=== PATIENT | female | born 1960 | race Caucasian/White ===

== ENCOUNTER 2023-08-18 08:29 | Inpatient (IN) | payer OTHER, SELFPAY ==
[2023-08-18] VITALS (9 sets, daily range): BP systolic 91–142; BP diastolic 47–76; BMI 30.7; BMI 29.4
[2023-08-18 05:14] LABS: % Basophils 0.2 % (0-2); % Immature Granulocytes 0.4 % (0-0.5); % Lymphocytes 6.2 % (20.5-51.1); % Monocytes 9.3 % (1.7-9.3); % Neutrophils 83.9 % (42.2-75.2); Absolute Immature Granulocytes 0.1 10^3/uL (0-0.05); Absolute Lymphocytes 0.8 10^3/uL (1.2-3.4); Absolute Monocytes 1.2 10^3/uL (0.1-0.6); Absolute Neutrophils 11.1 10^3/uL (1.4-6.5); Hematocrit 36.7 % (37.0-47.0); Hemoglobin 12.8 g/dL (12.0-16.0); Mean Corp Hgb Conc. 34.9 g/dL (33.0-37.0); Mean Corpuscular Hgb 30.6 pg (27.0-31.0); Mean Corpuscular Volume 87.8 fL (81.0-99.0); Nucleated Red Blood Cells % 0 %; Platelet Count 303 10^3/uL (130-400); Red Blood Cell Count 4.18 10^6/uL (4.20-5.40); Red Cell Dist. Width 12.9 % (11.5-14.5); White Blood Cell Count 13.2 10^3/uL (4.8-10.8)
--- NOTE | 2023-08-18 05:20 | ED.GENMED ---
History of Present Illness
General
Chief Complaint: Rectal Bleeding
Source: patient and spouse
Exam Limitations: none
Time Seen by Provider: 08/18/23 05:09
Nursing documentation reviewed up to this point in time: agreed with
Travel History
Have you had any contact with someone who has COVID-19?: No
Do you have any symptoms of coronavirus? Fever > 100 degrees, chills, cough, shortness of breath, sore throat, loss of taste or smell, muscle aches, or headache?: No
History of Present Illness
History of Present Illness:
This is a 63-year-old woman who has history of hypertension, maintained on low-dose hydrochlorothiazide. She presents with somewhat abrupt onset of nausea, vomiting, diarrhea that initially began around 6:30 PM yesterday evening. She continued
with frequent vomiting and nonbloody diarrhea throughout the evening until approximately 10 PM when vomiting resolved but diarrhea has persisted and is now bloody. Throughout the night and morning patient states she has had intermittent crampy mid
to lower abdominal pain accompanied with passage of bright red liquid stool generally once per hour. She states she has been passing approximately half a cup full of bright red liquid bloody stool generally once per hour. She has had intermittent
chills but has not had a fever.
She does admit to mild to moderate lightheadedness with initial onset of symptoms yesterday evening but lightheadedness has since resolved.
She denies chest pain or palpitations, no cough or shortness of breath.
She takes no anticoagulants.
Her had similar nausea/vomiting/diarrhea without bloody diarrhea that began August 14 and resolved August 16.
She denies recent antibiotic use nor recent travel.
She reports no history of similar episodes in the past. No prior history of GI bleed.
She states she has undergone routine surveillance colonoscopy that she believes was unremarkable.
Past History
Past History
ED Past Medical History: HTN ([place]) and Other (Endometriosis, anemia related to dysfunctional uterine bleeding 2011); Negative Arrthythmia, Asthma, CAD, Cancer, CHF or COPD
ED Past Surgical History: and Gynecological (Laparoscopy for endometriosis)
Social History
Tobacco: Non-smoker
Alcohol: None
Drug: None
Personal:
Living: with family
Employment: Employed
Family History
Family History: Hypertension
Phy Exam
Physical Exam
Physical Exam:
GENERAL: 63-year-old woman appears her stated age, awake and alert, mildly ill in appearance. Afebrile. Vital signs within normal limits. is accompanying.
EYE: anicteric
NECK: Supple, nontender, no meningismus, no significant adenopathy.
ENT: oral mucosa is moist. No rhinorrhea.
CARDIAC: Regular rate and rhythm. no murmur.
LUNGS: Clear breath sounds bilaterally, no acute respiratory distress, no wheezes/rales/rhonchi
ABDOMEN: Soft, nondistended, mild generalized tenderness to the lower abdomen, no r/g, no cvat. Mildly hyperactive bowel sounds. Rectal exam reveals scant bright red blood per rectum, heme positive. No palpable masses.
NEUROLOGICAL: Alert and oriented x3, no focal neuro deficits.
SKIN: Warm and dry, normal color, skin intact. No rash.
MUSCULOSKELETAL: No C/C/E. peripheral pulses are full and equal b/l. No palpable tenderness.
PSYCH: Normal and appropriate interaction.
Course
Orders/Labs/Results
Orders:
Orders
08/18/23 04:57
Cardiac Monitoring- Treatment ONCE
IV Insert/Care/Rem.- Treatment PRN
O2 Therapy [RESP] Urgent
Titrate/Wean O2 to maintain O2 sat greater than (%): 93
Special Instructions: MAINTAIN CONTINOUS O2 SATS > OR = 93%
Pulse Ox/spot Check [RESP] Urgent
Quantity: 1
Special Instructions: ON ROOM AIR
08/18/23 05:05
Type+Screen Urgent
Complete Blood Count/With Diff Urgent
Comprehensive Metabolic Panel Urgent
PTT Urgent
Prothrombin Time Urgent
08/18/23 05:18
0.9% Sodium Chloride 1000 ml [Nss] 1,000 ml IV BOLUS
08/18/23 05:31
CT Abd/pelvis W Iv Cont Urgent
Comment:
Reason For Exam: acute N/V/D, bloody diarrhea
08/18/23 05:54
Lactic Acid Urgent
STOOL [C difficile Antigen & Toxins] Urgent
QUENTIN Source: Feces/Stool
Specimen Description:
Date Specimen was Collected: 08/18/23
Time Specimen was Collected: 05:51
Stool Culture Urgent
QUENTIN Source: Feces/Stool
Specimen Description:
Date Specimen was Collected: 08/18/23
Time Specimen was Collected: 05:51
08/18/23 07:05
Piperacillin/Tazo 3.375 Gram [Zosyn] 3.375 gram in 50 ml IV NOW
Abnormal Lab Results
08/18/23
05:05
WBC 13.2 H 10^3/uL
(4.8-10.8)
RBC 4.18 L 10^6/uL
(4.20-5.40)
Hct 36.7 L %
(37.0-47.0)
Abs Immat Gran (auto) 0.1 H 10^3/uL
(0-0.05)
Absolute Neuts (auto) 11.1 H 10^3/uL
(1.4-6.5)
Absolute Lymphs (auto) 0.8 L 10^3/uL
(1.2-3.4)
Absolute Monos (auto) 1.2 H 10^3/uL
(0.1-0.6)
Neutrophils % 83.9 H %
(42.2-75.2)
Lymphocytes % 6.2 L %
(20.5-51.1)
Sodium 130 L mmol/L
(135-145)
Glucose 137 H mg/dl
(70-99)
08/18/23 05:05
08/18/23 05:05
Vital Signs
Initial and Last Documented VS:
Initial Vital Signs
Temp Pulse Resp BP Pulse Ox
97.8 F 80 18 142/66 100
08/18/23 04:44 08/18/23 04:44 08/18/23 04:44 08/18/23 04:44 08/18/23 04:44
Last Documented Vital Signs
Temp Pulse Resp BP Pulse Ox
97.8 F 80 18 142/66 100
08/18/23 04:44 08/18/23 04:44 08/18/23 04:44 08/18/23 04:44 08/18/23 04:44
MDM/Problems Addressed
Differential Diagnosis Includes:
Concern for acute gastroenteritis, enterotoxigenic colitis, other consideration is acute lower GI bleed related to internal hemorrhoid, diverticular bleed, AVM.
Ischemic bowel is much less likely.
Thus far hemodynamically stable.
Will initiate IV fluids.
Labs are pending.
Will plan for stool cultures, stool for C. difficile.
Will plan for CT abdomen pelvis with IV contrast.
Chronic conditions affecting care: HTN
*Radiology
Radiology exam reviewed: preliminary read by ED provider (Preliminary CT read by myself shows significant bowel wall thickening of the descending as well as sigmoid colon. No evidence of free air. No bowel obstruction.) and radiology read reviewed
(CAT scan shows severe acute infectious colitis of the descending and sigmoid colon)
*Pulse Oximetry
Patient hypoxic: no
*Ip Network Architect Interpretation
Rate: normal
Interpretation: normal
Rhythm: sinus
*Critical Care Note
Total Time (30-74mins, 75-104mins- exclusive of procedures): Not Applicable
Update Note
Update Note:
Patient continues with bright red bloody liquid stool, generally every 45 minutes to an hour.
She remains hemodynamically stable.
Labs show mildly elevated white blood cell count of 13.2. Normal H&H. Mild hyponatremia with sodium of 130, otherwise electrolytes within normal limits. Lactic acid is normal at 1.2.
Awaiting official CAT scan result but appears to have moderate bowel wall colonic wall thickening of descending and sigmoid colon.
Concern for acute hemorrhagic colitis in the is some concern that she continues with passage of bright red bloody stool at least every hour.
Will continue IV fluids, n.p.o. status and will initiate IV antibiotics.
Stool cultures are pending.
Will admit to hospitalist service.
ED Attending Note
-
Portions of this chart may have been created with voice recognition software.� Occasional wrong word or��sound alike� substitutions may have occurred due to the inherent limitations of voice recognition software.
Discharge Plan
Departure
Patient Disposition: Admit
Date of Disposition: 08/18/23
Time of Disposition: 07:09
Presentation/result/management discussed w/ accepting MD/DO: Hospitalist
Condition: Fair
Discharge Problem:
Acute hemorrhagic colitis
Prescriptions:
No Action
hydrochlorothiazide 12.5 mg Tablet
12.5 mg PO DAILY
Referrals:
Tamia Martinez DO [Family Provider] -
Interventions
Interventions:
*Risk Screen - Suicide Last Done: 08/18/23 04:44
*General Assessment Last Done: 08/18/23 05:04
*Neglect/Abuse Screening Last Done: 08/18/23 04:44
ED- Fall Risk Assessment Last Done: 08/18/23 05:21
*ED COVID-19 Vaccine History Last Done: 08/18/23 05:21
JK-Dpiuod-Pxunpczyog Assessment Last Done: 08/18/23 05:21
ED- Cardiac Assessment Last Done: 08/18/23 05:21
ED- Pulmonary Assessment Last Done: 08/18/23 05:21
[2023-08-18 05:38] LABS: ALT (SGPT) 21 U/L (0-35); AST (SGOT) 25 U/L (14-36); Albumin 4.3 g/dl (3.5-5.0); Alkaline Phosphatase 78 U/L (38-126); Blood Urea Nitrogen 16 mg/dl (7-17); Calcium 9.4 mg/dl (8.4-10.2); Carbon Dioxide 24 mmol/L (22-30); Chloride 101 mmol/L (98-107); Estimated Creatinine Clearance 85 ml/min; Glucose 137 mg/dl (70-99); Potassium 4.2 mmol/L (3.5-5.1); Sodium 130 mmol/L (135-145); Total Bilirubin 0.6 mg/dl (0.2-1.3); Total Protein 6.9 g/dl (6.3-8.2); eGFR > 60.00
[2023-08-18 05:48] LABS: INR 0.93; PT 12.3 Sec (11.4-14.6)
[2023-08-18] MEDS: NSS 1000 IV (05:51)
[2023-08-18 06:22] LABS: Lactic Acid 1.2 mmol/L (0.7-2.0)
[2023-08-18] MEDS: ZOSYN 50 IV ×3 (07:14→20:08)
--- NOTE | 2023-08-18 07:50 | W.PN.HOSP.TC ---
Today's Communication/Plan
-
stool studies
IVF
Assessment / Plan
Assessment / Plan
Acute onset of vomiting with associated diarrhea ~6:30 last evening
No foreign travel or antibiotics. also with diarrhea/vomiting 2/-2/3. Also no abx or foreign travel.
Pt had nl colonoscopy ~7 yrs ago for screening. No GI hx
CT scan abd: 1. � SEVERE ACUTE INFECTIOUS COLITIS of the DESCENDING and SIGMOID COLON.
2. � Minimal peritoneal fluid in the pelvis.
3. � Mild diffuse hepatic steatosis.
essential HTN
Hyponatremia/mild hyperglycemia
P:IVF
empiric abx
stool studies
GI consult
full code
see dictated note
Anticipated Discharge: > 48 hours
Subjective/Interval History
-
Date of Service: August 18, 2023
Vomiting and diarrhea onset 6:30 PM last evening, vomiting resolved, diarrhea became hemorrhagic
Objective Data
-
Labs:
Laboratory Results
08/18/23
05:05
WBC 13.2 H
Hgb 12.8
Hct 36.7 L
Plt Count 303
PT 12.3
INR 0.93
APTT 26.0
Sodium 130 L
Potassium 4.2
Chloride 101
Carbon Dioxide 24
BUN 16
Creatinine 0.7
Glucose 137 H
Calcium 9.4
Total Bilirubin 0.6
AST 25
ALT 21
Alkaline Phosphatase 78
Vital Signs:
Vital Signs
Temp Pulse Resp BP Pulse Ox
97.8 F 72 17 139/74 99
08/18/23 04:44 08/18/23 07:45 08/18/23 07:45 08/18/23 07:00 08/18/23 07:45
Review of Systems
-
History Source: Patient and Family ( at bedside)
Constitutional: Denies Fever
EENT: Reports No Symptoms Reported
Respiratory: Reports No Symptoms
Cardiac: Reports No Symptoms
Abdomen/GI: Reports Abdominal Pain, Vomiting, Diarrhea and Bloody Stools
Genitourinary: Reports No Symptoms
Musculoskeletal: Reports No Symptoms
Neuro: Reports Dizzy
Physical Exam
-
General: Well Developed, Well Nourished and No Apparent Distress
HEENT: Normocephalic, Atraumatic and Moist Mucous Membranes
Respiratory: Clear to Auscultation; Negative Wheezes, Rales or Rhonchi
Cardiac: Regular Rhythm and S1/S2
GI: Soft, Normal Bowel Sounds and Tender
Neuro: Awake, Alert and Oriented
--- NOTE | 2023-08-18 10:23 | CON.GI ---
Addendum entered and electronically signed by Ange Escudero MD 08/18/23 12:34:
I saw and examined the patient.
The STOCK FEEDER's note was reviewed and I agree with the note.
Comment: This is a 63-year-old female who presented to the emergency room with symptoms off nausea, vomiting and diarrhea with bloody stools started yesterday evening.. CT shows severe colitis of the descending and sigmoid colon and was started on
Zosyn in the ER. Her was recently sick with similar symptoms his symptoms lasted for 3 days but his diarrhea was nonbloody. She says that she had eaten out prior to the onset of the symptoms she had eaten sausage.
Assessment and plan acute onset of symptoms of nausea, vomiting, abdominal pain with bloody diarrhea and CT consistent with left-sided colitis most consistent with infectious colitis likely foodborne. She is currently on antibiotics with Zosyn she
is nontoxic-appearing she did have mildly elevated leukocytosis on admission hemoglobin is stable. Continue IV fluids and antibiotics for now pending stool cultures. Will need repeat colonoscopy in about 6 to 8 weeks after DC. Doubt ischemic
colitis or IBD. Her last colonoscopy was about 7 years ago
Original Note:
Consultation
-
Date/Time Consultation Requested: 08/18/23
Date/Time Consultation Performed: 08/18/23 @ 10:30
Requesting Provider: Dr. Peguero
Performing Provider: CHRIS Cabezas; Dr. Escudero
Reason for Consultation: infectious colitis
Medical History
Chief Complaint / HPI
Chief Complaint: diarrhea, vomiting
History of Present Illness:
The patient is a 63-year-old female with a past medical history significant for hypertension, endometriosis, who presented to the emergency room complaints of rectal bleeding and vomiting. We are being asked to evaluate for possible infectious
colitis. The patient reports acute onset of nausea, vomiting, and diarrhea yesterday evening around 6:30 PM. She notes that her had been sick with similar symptoms several days prior and they had been going out to eat often this past week.
She reports that the nausea and vomiting had subsided but around 10 PM she started having bright red blood per rectum. She reports intermittent crampy abdominal discomfort of the lower abdomen prior to onset of the blood. She notes about a cup
size of blood with each episode. She denies any fevers but does admit to chills. She denies any further nausea or vomiting. She denies any significant constipation or diarrhea prior to the onset. She does note that when she was coming home from
the restaurant 1 evening she had urgency to go to the bathroom and did feel dizzy and lightheaded and near syncopal. She otherwise denies any chest pain, shortness of breath, syncope, dysphagia, odynophagia, unintentional weight loss, or loss of
appetite. She does admit she did take Advil once this week but denies any regular use of NSAIDs. She denies any use of blood thinners. She does drink alcohol 3 times weekly about 2-3 drinks per sitting. She reports her last colonoscopy was done
about 7 years ago at [facility] which was normal. She denies any recent travel. She admits to a family history of colon cancer of her maternal aunt. No family history of IBD. She notes that she is getting a workup with a private chef as her heart
rate transiently is elevated for unclear reasons. In the ER, a CT of the abdomen and pelvis was done showing findings consistent with severe acute colitis of the descending and sigmoid colon. Stool studies were sent, with negative Cdiff and pending
stool culture. She was placed on IV zosyn, CLD, and admitted for further evaluation by GI.
Past Medical History
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
Past Surgical History: and Gynecological (Laparoscopy for endometriosis)
Social History
Tobacco: Non-Smoker
Alcohol: None
Drug: None
Personal:
Living: With Family
Family History
Family History: Reviewed & Not Pertinent and Other (maternal aunt-colon cancer)
Allergies / Home Medications
Allergy/AdvReac Type Severity Reaction Status Date / Time
No Known Allergies Allergy Verified 08/18/23 04:47
Medication Instructions Recorded
ibuprofen 200 mg tablet (Advil) 200 mg PO DAILYPRN PRN mild pain 08/18/23
lisinopril 20 1 tab PO QPM 08/18/23
mg-hydrochlorothiazide 12.5 mg
tablet
loperamide 2 mg capsule 2 mg PO DIRECTED PRN diarrhea 08/18/23
Review of Systems
-
History Source: Patient
Constitutional: Reports Chills
EENT: Reports No Symptoms
Respiratory: Reports No Symptoms
Cardiac: Reports No Symptoms
Abdomen/GI: Reports Abdominal Pain, Nausea, Vomiting, Diarrhea and Bloody Stools
: Reports No Symptoms
Musculoskeletal: Reports No Symptoms
Skin: Reports No Symptoms
Neurological: Reports Dizzy
Vital Signs
Temp Pulse Resp BP Pulse Ox
97.8 F 72 17 139/74 99
08/18/23 04:44 08/18/23 07:45 08/18/23 07:45 08/18/23 07:00 08/18/23 07:45
Physical Exam
Exam
General: Well Developed, Well Nourished, No Apparent Distress and Other (flushed)
HEENT: Normocephalic, Anicteric and Atraumatic
Respiratory: Clear
Cardiac: S1/S2 and Regular Rhythm
GI: Soft, Non Distended, Normal Bowel Sounds (hyperactive) and Tender (RLQ/LLQ)
Musculoskeletal: No Edema
Skin: Warm and Dry
Neuro: Awake, Alert and Oriented
Psych: Calm
Results
WBC 13.2 10^3/uL (4.8-10.8) H 08/18/23 05:05
Hgb 12.8 g/dL (12.0-16.0) 08/18/23 05:05
Hct 36.7 % (37.0-47.0) L 08/18/23 05:05
MCV 87.8 fL (81.0-99.0) 08/18/23 05:05
Plt Count 303 10^3/uL (130-400) 08/18/23 05:05
Absolute Neuts (auto) 11.1 10^3/uL (1.4-6.5) H 08/18/23 05:05
PT 12.3 Sec (11.4-14.6) 08/18/23 05:05
INR 0.93 08/18/23 05:05
APTT 26.0 Sec (23.4-35.0) 08/18/23 05:05
Sodium 130 mmol/L (135-145) L 08/18/23 05:05
Potassium 4.2 mmol/L (3.5-5.1) 08/18/23 05:05
Chloride 101 mmol/L (98-107) 08/18/23 05:05
Carbon Dioxide 24 mmol/L (22-30) 08/18/23 05:05
BUN 16 mg/dl (7-17) 08/18/23 05:05
Creatinine 0.7 mg/dL (0.6-1.0) 08/18/23 05:05
Calcium 9.4 mg/dl (8.4-10.2) 08/18/23 05:05
Total Bilirubin 0.6 mg/dl (0.2-1.3) 08/18/23 05:05
AST 25 U/L (14-36) 08/18/23 05:05
ALT 21 U/L (0-35) 08/18/23 05:05
Alkaline Phosphatase 78 U/L (38-126) 08/18/23 05:05
Diagnostic Image Results:
08/18/2023 CT A/P w/IV contrast: �'SEVERE ACUTE INFECTIOUS COLITIS of the DESCENDING and SIGMOID COLON. Minimal peritoneal fluid in the pelvis. Mild diffuse hepatic steatosis.'
Prior GI Procedures:
EGD: none on file
Colonoscopy: ~7 years ago, normal per pt (At [facility])
Assessment / Plan
-
The patient is a 63-year-old female with a past medical history significant for hypertension, endometriosis, who presented to the emergency room complaints of rectal bleeding and vomiting. We are being asked to evaluate for possible infectious
colitis. She admits to acute onset of nausea, vomiting, diarrhea, with subsequent rectal bleeding. Her had been sick several days prior with similar symptoms. CT imaging showing severe likely acute infectious colitis of the descending and
sigmoid colon. Also noted with a mild leukocytosis with WBC 13.2. Hemoglobin stable on admission. Lactic acid was normal. Prior colonoscopy about 7 years ago was normal.
Problem list:
-nausea, vomiting, diarrhea, BRBPR
-CT showing severe descending, sigmoid colitis
-leukocytosis
-hyponatremia
-hx HTN
-hx endometriosis
Recommendations:
-Etiology of presenting symptoms/colitis likely infectious in nature (with sick at home days prior) v inflammatory colitis v less likely ischemic v gastroenteritis v other.
-Send stool studies. Added giardia/crypto, stool WBC, norovirus. Cdiff negative. Stool culture pending.
-Antibiotics as per hospitalist
-Clear liquid diet, advance to full liquids if tolerating. Goal diet low residue/low lactose
-Monitor for ongoing bleeding/stools. If continues with significant bleeding consider bleeding scan v inpatient colonoscopy
-Trend H/H
-Eventual colonoscopy outpatient in 6-8 weeks
-Avoid NSAID's
-Will follow
-
-
Thank you for consultation and allowing me to participate in the patient's care. Please call the microsoft bi consultant GI physician during the after hours with any questions or concerns.
[2023-08-18] MEDS: D5/0.45%NSS with KCL 20 MEQ 1000 IV ×2 (12:30→20:13)
[2023-08-18] MEDS: DIOVAN 80 MG PO (12:30)
[2023-08-18] MEDS: FLUSH (NSS) 1 FLUSH IV (12:32)
[2023-08-18 12:56] LABS: Hematocrit 33.7 % (37.0-47.0); Hemoglobin 11.7 g/dL (12.0-16.0)
--- NOTE | 2023-08-18 13:26 | EDRN ---
Patient taken to room 335-1 on stretcher by monitor technician.
[2023-08-18] MEDS: TYLENOL 650 MG PO ×2 (15:56→23:35)
[2023-08-18 17:38] LABS: Urine Albumin Negative (Neg - Trace); Urine Bilirubin Negative (Negative); Urine Character Clear (Clear); Urine Color Straw; Urine Glucose Negative (Negative); Urine Ketone Negative (Negative); Urine Leukocyte Trace (Negative); Urine Nitrite Negative (Negative); Urine Occult Blood Negative (Negative); Urine Urobilinogen Negative (Neg - 1+)
[2023-08-18 17:47] LABS: Urine Bacteria Few (Negative); Urine Red Blood Cell 0-2 /HPF (0-2); Urine White Cell 0-2 /HPF (0-5)
[2023-08-19] MEDS: ZOSYN 50 IV ×4 (02:16→19:38)
[2023-08-19 05:30] LABS: Hematocrit 30.7 % (37.0-47.0); Hemoglobin 10.5 g/dL (12.0-16.0); Mean Corp Hgb Conc. 34.2 g/dL (33.0-37.0); Mean Corpuscular Hgb 30.8 pg (27.0-31.0); Platelet Count 215 10^3/uL (130-400); Red Blood Cell Count 3.41 10^6/uL (4.20-5.40); Red Cell Dist. Width 13.3 % (11.5-14.5); White Blood Cell Count 11.2 10^3/uL (4.8-10.8)
[2023-08-19] MEDS: D5/0.45%NSS with KCL 20 MEQ 1000 IV ×2 (05:31→15:44)
--- NOTE | 2023-08-19 06:00 | W.PN.GI.CBS2 ---
Today's Communication / Plan
-
See assessment and plan for details.
Assessment / Plan
-
1. Colitis: Acute, likely infectious given sick contacts, though nontoxic-appearing. C. difficile is negative, awaiting other stool studies, symptoms overall improving. At this point we will continue to trend labs and IV fluids, await final stool
studies. Will advance to full liquid diet. Pending labs and clinical course possibly able to DC later today without antibiotics, will plan colonoscopy in 6 to 8 weeks.
Subjective
Subjective
Date of Service: August 19, 2023
Patient overall feeling better, had less volume, only 1 bowel movement or night, though still with some bloody mucus, crampy abdominal pain, no fevers or chills. Tolerated clears that difficulty.
Objective
Data Reviewed
Laboratory Data:
Laboratory Results
08/19/23 05:18
Laboratory Results
PT 12.3 Sec (11.4-14.6) 08/18/23 05:05
INR 0.93 08/18/23 05:05
APTT 26.0 Sec (23.4-35.0) 08/18/23 05:05
Total Bilirubin 0.6 mg/dl (0.2-1.3) 08/18/23 05:05
AST 25 U/L (14-36) 08/18/23 05:05
ALT 21 U/L (0-35) 08/18/23 05:05
Alkaline Phosphatase 78 U/L (38-126) 08/18/23 05:05
Vital Signs and I&O:
Vital Signs
Temp Pulse Resp BP Pulse Ox
99.1 F 61 16 91/47 99
08/18/23 23:18 08/18/23 23:18 08/18/23 23:18 08/18/23 23:18 08/18/23 23:18
I&O
02/04/24 02/05/24 02/06/24
06:59 06:59 06:59
Intake Total 240 / 240
Balance 240 / 240
Physical Exam
Physical Exam
General: NAD
Abdomen: normal bowel sounds, soft, mild left lower quadrant tenderness, no masses or bruits, no ascites
[2023-08-19 06:39] LABS: Blood Urea Nitrogen 5 mg/dl (7-17); Calcium 8.1 mg/dl (8.4-10.2); Carbon Dioxide 23 mmol/L (22-30); Chloride 105 mmol/L (98-107); Estimated Creatinine Clearance 73 ml/min; Glucose 130 mg/dl (70-99); Potassium 3.9 mmol/L (3.5-5.1); Sodium 131 mmol/L (135-145); eGFR > 60.00
[2023-08-19 07:00] VITALS: BP 103/57
[2023-08-19] MEDS: DIOVAN PO (08:42)
--- NOTE | 2023-08-19 08:42 | W.PN.HOSP.TC ---
Today's Communication/Plan
-
advance diet
parameters on Diovan
slow IVF
Assessment / Plan
Assessment / Plan
Acute onset of vomiting with associated diarrhea ~6:30 last evening, vomiting resolved
No foreign travel or antibiotics. also with diarrhea/vomiting 2/1-2/3. Also no abx or foreign travel either.
Pt had nl colonoscopy ~7 yrs ago for screening. No GI hx. Pt and do eat out frequently
CT scan abd: 1. � SEVERE ACUTE INFECTIOUS COLITIS of the DESCENDING and SIGMOID COLON.
2. � Minimal peritoneal fluid in the pelvis.
3. � Mild diffuse hepatic steatosis.
essential HTN
BP slightly low this morning, will place parameters on Diovan
Hyponatremia
130-->131
mild hyperglycemia
130
P:will slow IVF
Symptoms appear to be improving, advance diet as tolerates
empiric abx
stool studies
neg C.Diff, many WBC
GI consult appreciated
diet advanced to full liquids
full code
Anticipated Discharge: 24 - 48 hours
Subjective/Interval History
-
Date of Service: August 19, 2023
large bloody BM last night ~midnight, none since
Objective Data
-
Labs:
Laboratory Results
08/19/23
05:18
WBC 11.2 H
Hgb 10.5 L
Hct 30.7 L
Plt Count 215 D
Sodium 131 L
Potassium 3.9
Chloride 105
Carbon Dioxide 23
BUN 5 L
Creatinine 0.8
Glucose 130 H
Calcium 8.1 L
Vital Signs:
Vital Signs
Temp Pulse Resp BP Pulse Ox
97.9 F 66 16 103/57 97
08/19/23 07:00 08/19/23 07:00 08/19/23 07:00 08/19/23 07:00 08/19/23 07:00
I&O
08/18/23 08/19/23 08/20/23
06:59 06:59 06:59
Intake Total 1739
Balance 1739
Review of Systems
-
History Source: Patient
Constitutional: Denies Fever
EENT: Reports No Symptoms Reported
Respiratory: Reports No Symptoms
Cardiac: Reports No Symptoms
Abdomen/GI: Reports Abdominal Pain, Vomiting, Diarrhea and Bloody Stools
Genitourinary: Reports No Symptoms
Musculoskeletal: Reports No Symptoms
Neuro: Reports Dizzy
Physical Exam
-
General: Well Developed, Well Nourished and No Apparent Distress
HEENT: Normocephalic, Atraumatic and Moist Mucous Membranes
Respiratory: Clear to Auscultation; Negative Wheezes, Rales or Rhonchi
Cardiac: Regular Rhythm and S1/S2
GI: Soft, Normal Bowel Sounds and Tender (LLQ)
Neuro: Awake, Alert and Oriented
--- NOTE | 2023-08-19 14:32 | CM ---
Patient seen at bedside. Patient stated that she lives with her in a 2 story home. Patient PCP is Dr. Martinez and he uses the [facility] on [address] Patient independent of ADL's and IADL's. Patient states that she anticipates discharge home with no
needs and has her car in the parking lot. CM will continue to follow for discharge planning needs.
Plan; home with no needs anticipated.
[2023-08-19 15:00] VITALS: BP 115/54
[2023-08-19 15:46] VITALS: BP 115/54
[2023-08-19 23:10] VITALS: BP 93/44
[2023-08-20] MEDS: ZOSYN 50 IV ×2 (01:54→07:54)
[2023-08-20 05:43] LABS: % Basophils 0.6 % (0-2); % Eosinophils 1.3 % (0-6); % Immature Granulocytes 0.5 % (0-0.5); % Lymphocytes 18.4 % (20.5-51.1); % Monocytes 11.2 % (1.7-9.3); Absolute Basophils 0.1 10^3/uL (0-0.2); Absolute Eosinophils 0.1 10^3/uL (0-0.7); Absolute Lymphocytes 1.6 10^3/uL (1.2-3.4); Absolute Neutrophils 5.8 10^3/uL (1.4-6.5); Hematocrit 30.7 % (37.0-47.0); Hemoglobin 10.3 g/dL (12.0-16.0); Mean Corp Hgb Conc. 33.6 g/dL (33.0-37.0); Mean Corpuscular Hgb 30.6 pg (27.0-31.0); Mean Corpuscular Volume 91.1 fL (81.0-99.0); Mean Platelet Volume 9.3 fL (7.4-10.4); Nucleated Red Blood Cells % 0 %; Platelet Count 222 10^3/uL (130-400); Red Blood Cell Count 3.37 10^6/uL (4.20-5.40); Red Cell Dist. Width 13.3 % (11.5-14.5); White Blood Cell Count 8.6 10^3/uL (4.8-10.8)
[2023-08-20 06:00] VITALS: BMI 30.4
[2023-08-20 06:10] LABS: Blood Urea Nitrogen 3 mg/dl (7-17); Calcium 8.5 mg/dl (8.4-10.2); Carbon Dioxide 26 mmol/L (22-30); Chloride 108 mmol/L (98-107); Estimated Creatinine Clearance 73 ml/min; Glucose 107 mg/dl (70-99); Potassium 4.1 mmol/L (3.5-5.1); Sodium 135 mmol/L (135-145); eGFR > 60.00
[2023-08-20] MEDS: D5/0.45%NSS with KCL 20 MEQ 1000 IV (06:21)
--- NOTE | 2023-08-20 06:52 | W.PN.GI.CBS2 ---
Today's Communication / Plan
-
See assessment and plan for details.
Assessment / Plan
-
1. Colitis: Acute, likely infectious given sick contacts, though nontoxic-appearing. Stool studies negative so far, though not all final. She is overall much improved, and is okay to DC from a GI standpoint, without antibiotics. Will plan
colonoscopy in 6 to 8 weeks. We will sign off for now, please call back with any further questions.
Subjective
Subjective
Date of Service: August 20, 2023
Patient feeling well, less symptoms overall, less frequency, less diarrhea, less blood, hemoglobin is remained stable, no fevers overnight, less pain. Tolerated diet without difficulty.
Objective
Data Reviewed
Laboratory Data:
Laboratory Results
08/20/23 05:17
08/20/23 05:17
Laboratory Results
PT 12.3 Sec (11.4-14.6) 08/18/23 05:05
INR 0.93 08/18/23 05:05
APTT 26.0 Sec (23.4-35.0) 08/18/23 05:05
Total Bilirubin 0.6 mg/dl (0.2-1.3) 08/18/23 05:05
AST 25 U/L (14-36) 08/18/23 05:05
ALT 21 U/L (0-35) 08/18/23 05:05
Alkaline Phosphatase 78 U/L (38-126) 08/18/23 05:05
Vital Signs and I&O:
Vital Signs
Temp Pulse Resp BP Pulse Ox
99.4 F 69 14 93/44 99
08/19/23 23:10 08/19/23 23:10 08/19/23 23:10 08/19/23 23:10 08/19/23 15:00
I&O
08/18/23 08/19/23 08/20/23
06:59 06:59 06:59
Intake Total 1740 / 1740 1380 / 1380
Balance 1740 / 1740 1380 / 1380
Physical Exam
Physical Exam
General: NAD
Abdomen: normal bowel sounds, soft, minimal left lower quadrant tenderness, no masses or bruits, no ascites
[2023-08-20 07:00] VITALS: BP 140/64
[2023-08-20] MEDS: DIOVAN 80 MG PO (07:54)
[2023-08-20 08:54] LABS: Glycohemoglobin (HgbA1c) 5.7 % (4.0-5.6)
--- NOTE | 2023-08-20 10:17 | CM ---
Patient seen at bedside. Patient indicated that she was waiting for her to transport her. No discharge order in place at this time. CM will continue to follow for discharge planning needs.
Plan; home with no needs.
--- NOTE | 2023-08-20 11:11 | W.PN.HOSP.TC ---
Today's Communication/Plan
-
dc to home
Assessment / Plan
Assessment / Plan
Acute onset of vomiting with associated diarrhea ~6:30 evening prior to admission, has markedly reduced, though not resolved. vomiting resolved
No foreign travel or antibiotics. also with diarrhea/vomiting 2/1-2/3. Also no abx or foreign travel either.
Pt had nl colonoscopy ~7 yrs ago for screening. No GI hx. Pt and do eat out frequently
CT scan abd: 1. � SEVERE ACUTE INFECTIOUS COLITIS of the DESCENDING and SIGMOID COLON.
2. � Minimal peritoneal fluid in the pelvis.
3. � Mild diffuse hepatic steatosis.
essential HTN
BP remains low, pt is not on Diovan (this was incorrect on admission) takes Lisinopril/HCTZ 20/12.5 and Metoprolol 25mg prn tachycardia
Hyponatremia
130-->131-->135
mild hyperglycemia
130, with a1c 5.7%
P:tolerating diet, stool samples neg
full code
dc to home
More than 30 minutes spent in discharge including
Final examination of the patient
Summarizing hospital stay
Instructions for continuing care to all relevant caregivers
Preparation of discharge records, prescriptions, and referral forms
Total time spent (in minutes): 45
Anticipated Discharge: Today
Subjective/Interval History
-
Date of Service: August 20, 2023
Still with bloody diarrhea, but has decreased in frequency, tolerating diet and feels well enough to go home
Objective Data
-
Labs:
Laboratory Results
08/20/23
05:17
WBC 8.6
Hgb 10.3 L
Hct 30.7 L
Plt Count 222
Sodium 135
Potassium 4.1
Chloride 108 H
Carbon Dioxide 26
BUN 3 L
Creatinine 0.8
Glucose 107 H
Calcium 8.5
Vital Signs:
Vital Signs
Temp Pulse Resp BP Pulse Ox
97.5 F 69 16 140/64 99
08/20/23 07:00 08/20/23 07:54 08/20/23 07:00 08/20/23 07:54 08/20/23 07:00
I&O
08/19/23 08/20/23 08/21/23
06:59 06:59 06:59
Intake Total 1740 / 1740 1380 / 1380
Balance 1740 / 1740 1380 / 1380
Review of Systems
-
History Source: Patient
Constitutional: Denies Fever
EENT: Reports No Symptoms Reported
Respiratory: Reports No Symptoms
Cardiac: Reports No Symptoms
Abdomen/GI: Reports Abdominal Pain (only occurs immediately prior to BM's), Vomiting (resolved), Diarrhea and Bloody Stools
Genitourinary: Reports No Symptoms
Musculoskeletal: Reports No Symptoms
Neuro: Reports Dizzy
Physical Exam
-
General: Well Developed, Well Nourished and No Apparent Distress
HEENT: Normocephalic, Atraumatic and Moist Mucous Membranes
Respiratory: Clear to Auscultation; Negative Wheezes, Rales or Rhonchi
Cardiac: Regular Rhythm and S1/S2
GI: Soft, Normal Bowel Sounds and Tender (LLQ essentially resolved)
Neuro: Awake, Alert and Oriented
--- NOTE | 2023-08-20 11:43 | W.DS.TRANS ---
DC Summary - Last Repairer
-
Discharge Instructions:
Discharge Diagnosis/Procedures hemorrhagic gastroenteritis
Diet Low Fat,Low Residue
Activity No restrictions
Driving Restrictions Not until seen by your Dr
Bathing Restrictions None
Blood Work CBC, BMP in 1-2 weeks
Instructions:
Stand-Alone Forms:
Changes to Home Medications: Yes
Discharge Medications:
DC Medications w/original date entered in [email or web address]
levofloxacin 500 mg tablet 500 mg PO DAILY 7 days #7 tabs 08/20/23
metoprolol succinate 25 mg tablet,extended release 24 hr 12.5 mg PO DAILY #30 tabs 08/20/23
metronidazole 500 mg tablet 500 mg PO Q8H 7 days #21 tabs 08/20/23
Home Medication Changes
antibiotics are new
Would stop the Lisinopril/HCTZ and use low dose Metoprolol (which the pt already has at home, to use for tachycardia
should start with 1/2 tab daily, follow BP and increase to 1 daily based on BP response
Pending Results: No
== END 2023-08-20 11:45 | disposition home or self-care (01) | DRG 392 ==
LOC: 3 WEST ACU 08:29
PROVIDERS: Nurse Practitioner Family; ADMITTING PHYSICIAN Internal Medicine; CONSULT PHYSICIAN Internal Medicine Gastroenterology; EMERGENCY PHYSICIAN Emergency Medicine; FAMILY PHYSICIAN Family Medicine
DX: A09 Infectious gastroenteritis and colitis, unspecified (principal); E87.1 Hypo-osmolality and hyponatremia; K62.5 Hemorrhage of anus and rectum; N80.9 Endometriosis, unspecified; I10 Essential (primary) hypertension; K76.0 Fatty (change of) liver, not elsewhere classified; D50.0 Iron deficiency anemia secondary to blood loss (chronic); R73.9 Hyperglycemia, unspecified; R73.01 Impaired fasting glucose; Z80.0 Family history of malignant neoplasm of digestive organs
CPT/HCPCS: 74177; 80048; 80053; 81003; 81015; 83036; 83605; 85014; 85018; 85025; 85027; 85610; 85730; 86850; 86900; 86901; 87045; 87046; 87324; 87328; 87329; 87427; 87449; 87798; 89055; 96361; 96365; 99285; Q9967

== ENCOUNTER → 2023-10-01 06:17 | Day surgery (SDC) | payer OTHER, SELFPAY | LOC: GI 06:17 | PROVIDERS: ATTENDING PHYSICIAN Internal Medicine Gastroenterology | DX: K52.9 Noninfective gastroenteritis and colitis, unspecified (principal); R93.3 Abnormal findings on diagnostic imaging of other parts of digestive tract; K64.8 Other hemorrhoids | CPT/HCPCS: 45378 ==

== ENCOUNTER → 2024-02-25 11:32 | Outpatient (REF) | payer OTHER, SELFPAY | LOC: HWRAD 11:32 | PROVIDERS: ATTENDING PHYSICIAN Chiropractor; FAMILY PHYSICIAN Family Medicine | DX: S43.61XA Sprain of right sternoclavicular joint, initial encounter (principal) | CPT/HCPCS: 71130 ==